=== PATIENT | female | born 1990 | race Caucasian/White ===

== ENCOUNTER 2020-01-10 19:37 | Emergency (ER) | payer OTHER ==
[~2020-01-10] VITALS: Ht 160 cm; Wt 104.3 kg
[~2020-01-10 19:37] MED LIST: DIFLUCAN150 MG PO; IBUPROFEN 800800 M1 PO; PRENATAL; TRINATE TABLET1 TAB PO; ZPAK PO
[2020-01-10] MEDS ORDERED: HYDROCODON-ACE1 EAC8 PO (20:33)
[2020-01-10 20:36] VITALS: BP 153/90
== END 2020-01-10 20:37 | disposition home or self-care (01) ==
LOC: M.ERS 19:37
DX: K08.89 Other specified disorders of teeth and supporting structures (principal); Z88.6 Allergy status to analgesic agent

== ENCOUNTER 2020-02-07 18:09 | Emergency (ER) | payer OTHER ==
[~2020-02-07] VITALS: Ht 160 cm; Wt 104.3 kg
[~2020-02-07 18:09] MED LIST changes: +HYDROCODON-ACE1 EAC8 PO
[2020-02-07] MEDS ORDERED: AMOXICILLIN 50500 MG PO (18:17)
[2020-02-07] MEDS ORDERED: NORCO 5-325 TA1 EAC2 PO (18:48)
[2020-02-07 19:02] VITALS: BP 129/77
== END 2020-02-07 19:02 | disposition home or self-care (01) ==
LOC: M.ERS 18:09
DX: K08.89 Other specified disorders of teeth and supporting structures (principal); Z88.5 Allergy status to narcotic agent; Z88.6 Allergy status to analgesic agent

== ENCOUNTER 2020-05-05 20:15 | Emergency (ER) | payer OTHER ==
[~2020-05-05 20:15] MED LIST changes: +AMOXICILLIN 50500 MG PO; +NORCO 5-325 TA1 EAC2 PO
== END 2020-05-05 20:32 | disposition left against medical advice (07) ==
LOC: M.ERS 20:15
DX: Z53.21 Procedure and treatment not carried out due to patient leaving prior to being seen by health care provider (principal)

== ENCOUNTER 2020-05-24 00:42 | Emergency (ER) | payer OTHER ==
[~2020-05-24] VITALS: Ht 160 cm; Wt 104.3 kg
[2020-05-24] MEDS ORDERED: HYDROCODON-ACE1 EAC8 PO (01:22)
[2020-05-24 01:38] VITALS: BP 136/72
== END 2020-05-24 01:38 | disposition home or self-care (01) ==
LOC: M.ERS 00:42
DX: K08.89 Other specified disorders of teeth and supporting structures (principal); Z79.899 Other long term (current) drug therapy; Z88.8 Allergy status to other drugs, medicaments and biological substances; Z88.5 Allergy status to narcotic agent